=== PATIENT | male | born 1940 | race African-American/Black ===

== ENCOUNTER 2023-02-16 11:34 | Outpatient (CLI) | payer MEDICARE, SELFPAY ==
[2023-02-16 12:01] LABS: Basophils Percent Auto 0.6 % (0.2-1.2); Eosinophils Absolute Auto 0.1 K/mm3 (0-0.3); Hematocrit 36.7 % (42.0-52.0); Hemoglobin 13.1 g/dL (14.0-18.0); Immature Granulocyte Absolute 0.01 K/mm3 (0.00-0.031); Immature Granulocyte Percent A 0.3 % (0-0.5); Immature Reticulocyte Fraction 11.8 % (3.0-15.9); Lymphocytes Absolute Auto 1.11 K/mm3 (0.9-3.2); Lymphocytes Percent Auto 31.7 % (18.3-44.2); Mean Corpuscular HGB Conc 35.7 g/dl (32-36); Mean Corpuscular Volume 89.5 fl (80-100); Monocytes Absolute Auto 0.4 K/mm3 (0.1-0.6); Monocytes Percent Auto 10.6 % (2.6-8.5); Neutrophils Absolute Auto 1.9 K/mm3 (1.3-6.7); Neutrophils Percent Auto 54.8 % (45.5-73.1); Red Cell Distribution Width 12.8 % (11.5-14.5); Reticulocyte Hemoglobin Conten 36.7 pg (28.2-35.7); Reticulocyte Percent 1.98 % (0.7-4.3); Reticulocytes Absolute 0.08 B/L (32.2-175.7); White Blood Count 3.5 K/mm3 (4.5-10.0)
[2023-02-16 12:07] LABS: Immature Platelet Fraction Pct 23.8 % (0.9-11.2); Platelet Count Result 113 k/mm3 (150-375)
[2023-02-16 12:08] LABS: Mean Platelet Volume 14.1 fl (7.4-10.4)
[2023-02-16 16:50] LABS: Iron 62 ug/dL (49-181)
[2023-02-16 16:59] LABS: Percent Iron Saturation 19 % (20-50)
[2023-02-16 17:05] LABS: Alanine Aminotransferase 17 U/L (6-50); Albumin Level 4.6 g/dL (3.5-5.1); Alkaline Phosphatase 84 U/L (38-126); Anion Gap 7 mmol/L (8-16); Aspartate Amino Transferase 23 U/L (17-59); Bilirubin,Total 1.4 mg/dL (0.2-1.3); Blood Urea Nitrogen 12 mg/dL (9-20); Calcium 9.7 mg/dL (8.4-10.2); Carbon Dioxide 31 mmol/L (22-30); Chloride 100 mmol/L (98-107); Estimated Glomerular Filt Rate > 60; Glucose 94 mg/dL (65-110); Lactate Dehydrogenase 164 U/L (120-246); Potassium 4.5 mmol/L (3.4-5.0); Sodium 138 mmol/L (137-145)
[2023-02-16 18:34] LABS: Folic Acid 10.9 ng/mL (2.76->20)
[2023-02-20 09:32] LABS: Methylmalonic Acid 69 nmol/L (87-318)
== END 2023-02-16 11:35 | disposition home or self-care (01) ==
PROVIDERS: PCP Internal Medicine; Visit Provider Internal Medicine Hematology & Oncology
DX: D61.818 Other pancytopenia (principal); D64.9 Anemia, unspecified
CPT/HCPCS: 36415; 80053; 82607; 82728; 82746; 83540; 83550; 83615; 83921; 85025; 85046; 85055

== ENCOUNTER 2023-03-02 07:12 | Outpatient (CLI) | payer MEDICARE, SELFPAY ==
--- NOTE | ~2023-03-02 | US_ITS ---
Abdominal Sonogram: Real-time sonographic imaging of the abdomen was performed. Clinical History: Pancytopenia Findings: The liver appears normal with no evidence of solid mass lesion or bile duct dilatation. Sm all right hepatic lobe cyst present. Main portal vein demonstrates normal direction of flow. The sple en is normal in size without evidence of focal lesion. The gallbladder is well distended, and contai ns several echogenic, shadowing gallstones. No gallbladder wall thickening. The common bile duct zeb ures 5 mm. The visualized pancreas, aorta, and IVC are unremarkable. The right kidney measures 10.1 cm in length and the left kidney measures 10.9 cm. There is no hydronephrosis or renal calculus. Impression: Cholelithiasis. Reviewed, dictated and finalized at location . Impression: Cholelithiasis.
== END 2023-03-02 07:13 | disposition home or self-care (01) ==
LOC: ANHIMG 07:19
PROVIDERS: PCP Internal Medicine; Visit Provider Internal Medicine Hematology & Oncology
DX: D61.818 Other pancytopenia (principal); K80.20 Calculus of gallbladder without cholecystitis without obstruction
CPT/HCPCS: 76700

== ENCOUNTER 2023-07-05 13:01 | Outpatient (CLI) | payer MEDICARE, SELFPAY ==
[2023-07-05 13:32] LABS: Basophils Percent Auto 0.5 % (0.2-1.2); Eosinophils Absolute Auto 0.1 K/mm3 (0-0.3); Eosinophils Percent Auto 2.1 % (0-4.4); Hematocrit 34.9 % (42.0-52.0); Immature Granulocyte Absolute 0.01 K/mm3 (0.00-0.031); Immature Granulocyte Percent A 0.3 % (0-0.5); Immature Platelet Fraction Pct 21.7 % (0.9-11.2); Lymphocytes Absolute Auto 1.19 K/mm3 (0.9-3.2); Mean Corpuscular HGB Conc 37.2 g/dl (32-36); Mean Corpuscular Volume 88.6 fl (80-100); Mean Platelet Volume 13.6 fl (7.4-10.4); Monocytes Absolute Auto 0.3 K/mm3 (0.1-0.6); Monocytes Percent Auto 8.3 % (2.6-8.5); Neutrophils Absolute Auto 2.2 K/mm3 (1.3-6.7); Neutrophils Percent Auto 57.8 % (45.5-73.1); Platelet Count Result 117 k/mm3 (150-375); Red Blood Count 3.94 M/mm3 (4.6-6.20); Red Cell Distribution Width 12.4 % (11.5-14.5); White Blood Count 3.8 K/mm3 (4.5-10.0)
[2023-07-05 17:06] LABS: Iron 78 ug/dL (49-181)
[2023-07-05 17:18] LABS: Percent Iron Saturation 24 % (20-50)
[2023-07-05 17:58] LABS: Alanine Aminotransferase 25 U/L (6-50); Albumin Level 4.3 g/dL (3.5-5.1); Alkaline Phosphatase 60 U/L (38-126); Anion Gap 6 mmol/L (8-16); Aspartate Amino Transferase 31 U/L (17-59); Bilirubin,Total 0.8 mg/dL (0.2-1.3); Blood Urea Nitrogen 12 mg/dL (9-20); Calcium 9.2 mg/dL (8.4-10.2); Carbon Dioxide 26 mmol/L (22-30); Chloride 105 mmol/L (98-107); Estimated Glomerular Filt Rate > 60; Glucose 90 mg/dL (65-110); Sodium 137 mmol/L (137-145)
== END 2023-07-05 13:02 | disposition home or self-care (01) ==
LOC: ANHLAB 13:04
PROVIDERS: PCP Internal Medicine; Visit Provider Internal Medicine Hematology & Oncology
DX: D61.818 Other pancytopenia (principal); D64.9 Anemia, unspecified
CPT/HCPCS: 36415; 80053; 82728; 83540; 83550; 85025; 85055

== ENCOUNTER 2024-01-03 09:36 | Outpatient (CLI) | payer MEDICARE, SELFPAY ==
[2024-01-03 10:09] LABS: Basophils Percent Auto 0.6 % (0.2-1.2); Eosinophils Absolute Auto 0.1 K/mm3 (0-0.3); Hematocrit 38.3 % (42.0-52.0); Hemoglobin 14.1 g/dL (14.0-18.0); Immature Granulocyte Absolute 0.01 K/mm3 (0.00-0.031); Immature Granulocyte Percent A 0.3 % (0-0.5); Immature Platelet Fraction Pct 24.1 % (0.9-11.2); Lymphocytes Absolute Auto 1.01 K/mm3 (0.9-3.2); Lymphocytes Percent Auto 28.2 % (18.3-44.2); Mean Corpuscular HGB Conc 36.8 g/dl (32-36); Mean Corpuscular Hemoglobin 32.6 pg (26-34); Mean Corpuscular Volume 88.7 fl (80-100); Mean Platelet Volume 13.7 fl (7.4-10.4); Monocytes Absolute Auto 0.4 K/mm3 (0.1-0.6); Monocytes Percent Auto 10.3 % (2.6-8.5); Neutrophils Absolute Auto 2.1 K/mm3 (1.3-6.7); Neutrophils Percent Auto 58.6 % (45.5-73.1); Platelet Count Result 122 k/mm3 (150-375); Red Blood Count 4.32 M/mm3 (4.6-6.20); Red Cell Distribution Width 12.2 % (11.5-14.5); White Blood Count 3.6 K/mm3 (4.5-10.0)
[2024-01-03 10:17] LABS: Platelet Estimate Decreased (Adequate); Schistocytes None Seen (NORMAL); Target Cells 1+ (NORMAL)
[2024-01-03 10:18] LABS: Poikilocytosis 1+ (NORMAL)
[2024-01-03 12:31] LABS: Iron 138 ug/dL (49-181)
[2024-01-03 12:32] LABS: Alanine Aminotransferase 18 U/L (6-50); Albumin Level 4.5 g/dL (3.5-5.1); Alkaline Phosphatase 63 U/L (38-126); Anion Gap 6 mmol/L (8-16); Aspartate Amino Transferase 26 U/L (17-59); Bilirubin,Total 1.3 mg/dL (0.2-1.3); Blood Urea Nitrogen 16 mg/dL (9-20); Carbon Dioxide 30 mmol/L (22-30); Chloride 103 mmol/L (98-107); Estimated Glomerular Filt Rate > 60; Glucose 101 mg/dL (65-110); Potassium 4.6 mmol/L (3.4-5.0); Sodium 139 mmol/L (137-145)
[2024-01-03 12:41] LABS: Percent Iron Saturation 46 % (20-50)
[2024-01-03 13:40] LABS: Folic Acid > 20.0 ng/mL (2.76->20)
== END 2024-01-03 09:37 | disposition home or self-care (01) ==
LOC: ANHLAB 09:43
PROVIDERS: PCP Internal Medicine; Visit Provider Internal Medicine Hematology & Oncology
DX: D61.818 Other pancytopenia (principal); D64.9 Anemia, unspecified
CPT/HCPCS: 36415; 80053; 82607; 82728; 82746; 83540; 83550; 85025; 85055

== ENCOUNTER 2025-01-01 08:52 | Outpatient (CLI) | payer MEDICARE, SELFPAY ==
[2025-01-01 09:20] LABS: Basophils Percent Auto 0.5 % (0.2-1.2); Eosinophils Absolute Auto 0.1 K/mm3 (0-0.3); Eosinophils Percent Auto 2.3 % (0-4.4); Hematocrit 38.4 % (42.0-52.0); Immature Granulocyte Absolute 0.01 K/mm3 (0.00-0.031); Immature Granulocyte Percent A 0.2 % (0-0.5); Immature Platelet Fraction Pct 24.1 % (0.9-11.2); Lymphocytes Absolute Auto 1.25 K/mm3 (0.9-3.2); Lymphocytes Percent Auto 29.1 % (18.3-44.2); Mean Corpuscular HGB Conc 36.5 g/dl (32-36); Mean Corpuscular Hemoglobin 32.7 pg (26-34); Mean Corpuscular Volume 89.7 fl (80-100); Monocytes Absolute Auto 0.5 K/mm3 (0.1-0.6); Monocytes Percent Auto 10.7 % (2.6-8.5); Neutrophils Absolute Auto 2.5 K/mm3 (1.3-6.7); Neutrophils Percent Auto 57.2 % (45.5-73.1); Platelet Count Result 117 k/mm3 (150-375); Red Blood Count 4.28 M/mm3 (4.6-6.20); Red Cell Distribution Width 12.7 % (11.5-14.5); White Blood Count 4.3 K/mm3 (4.5-10.0)
[2025-01-01 11:30] LABS: Iron 120 ug/dL (49-181)
[2025-01-01 11:33] LABS: Alanine Aminotransferase 22 U/L (6-50); Albumin Level 4.7 g/dL (3.5-5.1); Alkaline Phosphatase 67 U/L (38-126); Anion Gap 11 mmol/L (4-12); Aspartate Amino Transferase 28 U/L (17-59); Bilirubin,Total 1.2 mg/dL (0.2-1.3); Blood Urea Nitrogen 13 mg/dL (9-20); Calcium 9.9 mg/dL (8.4-10.2); Carbon Dioxide 24 mmol/L (22-30); Chloride 103 mmol/L (98-107); Estimated Glomerular Filt Rate > 60; Glucose 96 mg/dL (65-110); Potassium 3.8 mmol/L (3.4-5.0); Sodium 138 mmol/L (137-145)
--- OUTSIDE RECORDS SUMMARY | 2025-01-01 11:35 | XMS_ITS | Clinical Summary ---
Author Organization [facility] Address [address] [place] [address] Care Team Providers Care Geology Associate Name Role Phone Unavailable Primary Care Provider Unavailabl e Source Comments [facility],non-owned Affiliates and Associated Physician Practices is amultiple site organization consisting of ambulatory clinics and hospital sitesin [place], [place], [place] and [place]. This disclosure is being madepursuant to the Care Everywhere program and may not contain all information available regarding this patient. Last updated 18.[facility] Social History Tobacco Use Types Packs/Day Years Used Date Smoking Tobacco: Never Assessed Sex and Gender Information Value Date Recorded Sex Assigned at Not on file Gender Identity Not on file Sexual Orientation Not on file Plan of Treatment Health Maintenance Due Date Last Done Comments DTAP/TDAP/TD VACCINES (1 - Tdap) 1959 PNEUMOCOCCAL VACCINE 50+ (1 of 1 - PCV) 1990 ZOSTER VACCINE (1 of 2) 1990 Respiratory Syncytial Virus (RSV) Vaccine Pt: or over 60 yrs (1 - 1-dose 75+ series) 2015 COVID-19 VACCINE ( - 2023-2 5 season) 2024 INFLUENZA VACCINE (#1) 2024 DEPRESSION SCREENING 11/15/2024 HEPATITIS B VACCINE Aged Out No longe r eligible based on patient's age to complete this topic HIB VACCINE Aged Out No longer eligi ble based on patient's age to complete this topic HPV VACCINE Aged Out No longer eligi ble based on patient's age to complete this topic MENINGOCOCCAL (Group B) VACCINE Aged Out No longer eligible based on patient's age to complete this topic MENINGOCOCCAL VACCINE Aged Out No ezequiel alex eligible based on patient's age to complete this topic
--- OUTSIDE RECORDS SUMMARY | 2025-01-01 11:35 | XMS_ITS | Referral Summary ---
Author Organization [facility] Address [address] [place] [address] Care Team Providers Care Arborist Climber Name Role Phone Unavailable Primary Care Provider Unavailabl e Source Comments [facility],non-owned Affiliates and Associated Physician Practices is amultiple site organization consisting of ambulatory clinics and hospital sitesin [place], [place], [place] and [place]. This disclosure is being madepursuant to the Care Everywhere program and may not contain all information available regarding this patient. Last updated 18.[facility] Social History Tobacco Use Types Packs/Day Years Used Date Smoking Tobacco: Never Assessed Sex and Gender Information Value Date Recorded Sex Assigned at Not on file Gender Identity Not on file Sexual Orientation Not on file Plan of Treatment Not on file
--- OUTSIDE RECORDS SUMMARY | 2025-01-01 11:35 | XMS_ITS | Clinical Summary ---
[facility] Address [address] [place] [address] Care Team Providers Care Glass Furnace Tender Name Role Phone Adarsh Gonzales MD Primary Care Provider [phone] Allergies Active Allergy Reactions Criticality Noted Date Comments Meperidine Anxiety Low 02/16/2023 Medications atorvastatin (LIPITOR) 40 mg tablet Take 40 mg by mouth daily. 01/20/2023 Active aspirin (OMERO CHEWABLE) 81 mg Tablet, Chewable Take 81 mg by mouth daily. Active Active Problems Problem Noted Date Diagnosed Date Anemia, unspecified 02/16/2023 Encounters Date Type Department Care Team Description 12/07/2024 External Device Data [facility] ABSTRACTION Provider, Abstract from Last 3 Months Family History Medical History Relation Name Comments Diabetes Mother Relation Name Status Comments Brother Alive Father Mother Sister 1 Alive Sister 2 Alive Sister 3 Alive Sister 4 Son Alive Social History Tobacco Use Types Packs/Day Years Used Date Smoking Tobacco: Former Cigarettes Q uit: 1974 Smokeless Tobacco: Never Tobacco Cessation:Counseling Given: Not Answered Alcohol Use Standard Drinks/Week Comments Never 0 (1 standard drink = 0.6 oz pur e alcohol) Sex and Gender Information Value Date Recorded Sex Assigned at Not on file Legal Sex Male 9:13 AM PIPE CHIPPER Gender Identity Not on file Sexual Orientation Not on file Last Filed Vital Signs Vital Sign Reading Time Taken Comments Blood Pressure 160/105 01/10/2024 10:52 AM PIPE CHIPPER Pulse 86 01/10/2024 10:51 AM PIPE CHIPPER Temperature 36.7 C (98.1 F) 01/10/2024 10:51 AM PIPE CHIPPER Respiratory Rate 14 01/10/2024 10:51 AM PIPE CHIPPER Oxygen Saturation 95% 01/10/2024 10:51 AM PIPE CHIPPER Inhaled Oxygen Concentration - - Weight 73 kg (161 lb) 01/10/2024 10:51 AM PIPE CHIPPER Height 175.3 cm (5' 9 ) 02/16/2023 10:30 AM CDT Body Mass Index 23.78 02/16/2023 10:30 AM CDT Plan of Treatment Upcoming Encounters Date Type Department Care Team (Late st Contact Info) Description 01/15/2025 10:00 AM PIPE CHIPPER Office Visit [facility] Oncology and Hematology - [place] [address] [place] [address] Vince Zarate MD [address] [place] [address] Health Maintenance Due Date Last Done Comments DTAP/TDAP/TD VACCINES (1 - Tdap) 1959 Traditional Medicare (ACO) Annual Wellness Visit 07/23 PNEUMOCOCCAL VACCINE 65+ YEARS (1 of 1 - PCV) 07/23/19 90 ZOSTER VACCINE (1 of 2) 1990 RSV VACCINE (60+ or ) (1 - 1-dose 75+ series) 2015 INFLUENZA VACCINE (#1) 2024 Insurance MEDICARE PART A AND B [facility] [id number] Care Teams Glass Furnace Tender Relationship Specialty Start Date End Date Adarsh Gonzales MD [address] [id number] PCP - General Internal Medicine 02/16/23
--- OUTSIDE RECORDS SUMMARY | 2025-01-01 11:36 | XMS_ITS | Patient Health Summary ---
Author Organization [facility] Address [address] [place] [address] Care Team Providers Care Geotechnician Name Role Phone Unavailable Primary Care Provider Unavailabl e Note from [facility],non-owned Affiliates and Associated Physician Practices is amultiple site organization consisting of ambulatory clinics and hospital sitesin [place], [place], [place] and [place]. This disclosure is being madepursuant to the Care Everywhere program and may not contain all information available regarding this patient. Last updated 18.[facility] Social History Tobacco Use Types Packs/Day Years Used Date Smoking Tobacco: Never Assessed Sex and Gender Information Value Date Recorded Sex Assigned at Not on file Gender Identity Not on file Sexual Orientation Not on file Procedures * XR HIP LEFT 2VW OR MORE(Performed 09/12/2012) Performed for Pain * XR PELVIS 1 OR 2VW(Performed 09/12/2012) Performed for Pain * XR LUMBAR SPINE 4VW OR MORE(Performed 09/12/2012) Performed for Pain Results * XR HIP 2+ VW LEFT (09/12/2012 10:26 AM CDT) Anatomical Region Laterality Modality Pelvis, Lower Extremity Radio Fl uoroscopy 09/12/2012 10:3 3 AM CDT Impressions 09/12/2012 10:33 AM CDT Normal left hip. Postoperative pelvis. Narrative 09/12/2012 10:33 AM CDT Left hip two views: HISTORY: Left hip pain. There is no fracture, dislocation or bone erosion identified. There are multiple metallic staple in the pelvic cavity. Procedure Note Louise Landers MD - 09/12/2012 Left hip two views: HISTORY: Left hip pain. There is no fracture, dislocation or bone erosion identified. There are multiple metallic staple in the pelvic cavity. IMPRESSION Normal left hip. Postoperative pelvis. Freddie Ratliff Jr., MD DIAGNOSTIC IMAGING ORDERABLES * XR PELVIS 1 OR 2 VIEW ROUTINE (09/12/2012 10:26 AM CDT) Anatomical Region Laterality Modality Pelvis Radio Fluoroscop y 09/12/2012 10:4 6 AM CDT Impressions 09/12/2012 10:46 AM CDT No fracture seen. Postoperative pelvis. Narrative 09/12/2012 10:46 AM CDT AP bony pelvis: HISTORY: Pain. There is no fracture, dislocation or bone erosion identified. Multiple metallic yumiko are noted in the pelvic cavity. There are several small radiopaque foreign bodies overlying the right gluteal area. Procedure Note Louise Landers MD - 09/12/2012 AP bony pelvis: HISTORY: Pain. There is no fracture, dislocation or bone erosion identified. Multiple metallic yumiko are noted in the pelvic cavity. There are several small radiopaque foreign bodies overlying the right gluteal area. IMPRESSION No fracture seen. Postoperative pelvis. Freddie Ratliff Jr., MD DIAGNOSTIC IMAGING ORDERABLES * XR LUMBAR SPINE 4+VW ROUTINE (09/12/2012 10:26 AM CDT) Anatomical Region Laterality Modality Spine Radio Fluoroscop y 09/12/2012 10:3 1 AM CDT Impressions 09/12/2012 10:31 AM CDT Mild osteoarthritis. No fracture seen. Postoperative pelvis. Narrative 09/12/2012 10:31 AM CDT Lumbar spine five views: HISTORY: Low back pain. The vertebral alignment is normal. There is no acute fracture or dislocation seen. There are small spurs at L3, L4 and L5 vertebral bodies. Mild facet joint changes due to osteoarthritis are noted bilaterally from L3 to S1 levels. There are multiple metallic yumiko in the pelvic cavity. The disc spaces and the sacroiliac joints are within normal limits. Procedure Note Louise Landers MD - 09/12/2012 Lumbar spine five views: HISTORY: Low back pain. The vertebral alignment is normal. There is no acute fracture or dislocation seen. There are small spurs at L3, L4 and L5 vertebral bodies. Mild facet joint changes due to osteoarthritis are noted bilaterally from L3 to S1 levels. There are multiple metallic yumiko in the pelvic cavity. The disc spaces and the sacroiliac joints are within normal limits. IMPRESSION Mild osteoarthritis. No fracture seen. Postoperative pelvis. Freddie Ratliff Jr., MD DIAGNOSTIC IMAGING ORDERABLES
[2025-01-01 11:42] LABS: Percent Iron Saturation 39 % (20-50)
[2025-01-01 12:39] LABS: Folic Acid > 20.0 ng/mL (2.76->20)
== END 2025-01-01 08:53 | disposition home or self-care (01) ==
LOC: ANHLAB 08:53
PROVIDERS: PCP Internal Medicine; Visit Provider Internal Medicine Hematology & Oncology
DX: D61.818 Other pancytopenia (principal)
CPT/HCPCS: 36415; 80053; 82607; 82728; 82746; 83540; 83550; 85025; 85055